=== PATIENT | female | born 1995 | race Caucasian/White ===

== ENCOUNTER 2017-12-28 13:40 | Emergency (ER) | payer MEDICAID ==
--- NOTE | 2017-12-28 14:09 | EDM.PDOC ---
ED HPI GENERAL MEDICAL PROBLEM - General Chief Complaint: Upper Extremity Injury/Pain Stated Complaint: rt arm Time Seen by Provider: 12/28/17 13:49 Source of Information: Reports: Patient, Family History Limitations: Reports: No Limitations - History of Present Illness INITIAL COMMENTS - FREE TEXT/NARRATIVE: 22 y.o.w.f with a prev right wrist injury, came to the ed after she was pushed forward during a game by accident. Pt l fall onto her right forearm wrist and noticed pain and deformity. Her friend brought her to the ed for evaluation. No other injuries. No N/V/D or any other acute medical issues. 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(s) R wrist Pain Score (Numeric/FACES): 10 - Related Data Allergies Allergy/AdvReac Type Severity Reaction Status Date / Time No Known Allergies Allergy Verified 12/28/17 13:56 Home Meds: Home Meds NK [No Known Home Meds] 01/27/16 [History] Past Medical History HEENT History: Reports: Other (See Below) Other HEENT History: chronic tonsillitis Musculoskeletal History: Reports: Fracture Other Musculoskeletal History: hx R wrist fx Psychiatric History: Reports: ADHD Endocrine/Metabolic History: Reports: Obesity/BMI 30+ - Past Surgical History HEENT Surgical History: Reports: Adenoidectomy, Tonsillectomy Social & Family History - Family History Family Medical History: Noncontributory - Tobacco Use Smoking Status *Q: Current Some Day Smoker Years of Tobacco use: 1 Packs/Tins Daily: 0.1 - Caffeine Use Caffeine Use: Reports: Soda - Recreational Drug Use Recreational Drug Use: No Review of Systems - Review of Systems Review Of Systems: See Below Constitutional: Reports: No Symptoms Eyes: Reports: No Symptoms Ears: Reports: No Symptoms Nose: Reports: No Symptoms Mouth/Throat: Reports: No Symptoms Respiratory: Reports: No Symptoms Cardiovascular: Reports: No Symptoms GI/Abdominal: Reports: No Symptoms Genitourinary: Reports: No Symptoms Musculoskeletal: Reports: Joint Pain (right wrist) Skin: Reports: No Symptoms Neurological: Reports: No Symptoms Psychiatric: Reports: No Symptoms ED EXAM, GENERAL - Physical Exam Exam: See Below Exam Limited By: No Limitations General Appearance: Alert, WD/WN, Mild Distress Eye Exam: Bilateral Eye: Normal Inspection Ears: Normal External Exam Ear Exam: Bilateral Ear: Auricle Normal Nose: Normal Inspection, Normal Mucosa, No Blood Throat/Mouth: Normal Inspection, Normal Lips, Normal Teeth, Normal Gums, Normal Oropharynx, Normal Voice, No Airway Compromise Head: Atraumatic, Normocephalic Neck: Normal Inspection, Supple, Non-Tender, Full Range of Motion Respiratory/Chest: No Respiratory Distress, Lungs Clear, Normal Breath Sounds, No Accessory Muscle Use, Chest Non-Tender Cardiovascular: Normal Peripheral Pulses, Regular Rate, Rhythm, No Edema, No Gallop, No JVD, No Murmur, No Rub Peripheral Pulses: 1+: Radial (L) GI/Abdominal: Normal Bowel Sounds, Soft, Non-Tender, No Organomegaly, No Distention, No Abnormal Bruit, No Mass, Pelvis Stable (Female) Exam: Deferred Rectal (Female) Exam: Deferred Back Exam: Normal Inspection Extremities: Joint Swelling (right wrist), Limited Range of Motion Neurological: Alert, Oriented, CN II-XII Intact, Normal Cognition, Normal Gait, No Motor/Sensory Deficits Psychiatric: Normal Affect, Normal Mood Skin Exam: Warm, Dry, Intact, Normal Color, No Rash Lymphatic: No Adenopathy Course - Vital Signs Text/Narrative:: 22 y.o.w.f with a prev right wrist injury, came to the ed after she was pushed forward during a game by accident. Pt l fall onto her right forearm wrist and noticed pain and deformity. Her friend brought her to the ed for evaluation. No other injuries. No N/V/D or any other acute medical issues. BP 146/94 RR 20 Temp 36.9 Pulse ox 100% pulse 91 PE: Obese 22 y.o.w.f with right wrist injury Impression: comminuted fx right distal radius, styled fx of ulna Tx: Motrin, Volar splint, ICE, elevation 3.10 pm Consultation: Dr. Ruiz, Ortho: Will perform Surgery on 12/29/2017Monday at noon. NPO after midnight today. Reexam: Improved Plan: D/C with instructions Last Recorded V/S: Last Vital Signs Temp 36.9 C 12/28/17 13:49 Pulse 95 12/28/17 13:49 Resp 18 12/28/17 15:15 BP 130/90 12/28/17 15:15 Pulse Ox 98 12/28/17 15:15 - Orders/Labs/Meds Meds: Medications Discontinued Medications Generic Name Dose Route Start Last Admin Trade Name Amanda PRN Reason Stop Dose Admin Ibuprofen 600 mg 12/28/17 14:48 12/28/17 14:58 Motrin PO 12/28/17 14:49 600 mg ONETIME ONE Administration Departure - Departure Time of Disposition: 15:24 Disposition: Home, Self-Care 01 Condition: Good Clinical Impression: Radius and ulna distal fracture Qualifiers: Encounter type: initial encounter Fracture type: closed Laterality: right Qualified Code(s): S52.501A - Unspecified fracture of the lower end of right radius, initial encounter for closed fracture - Discharge Information *PRESCRIPTION DRUG MONITORING PROGRAM REVIEWED*: Yes *COPY OF PRESCRIPTION DRUG MONITORING REPORT IN PATIENT ARTHUR: Yes Instructions: Ibuprofen tablets and capsules, Wrist Fracture Treated With Immobilization, [id number] Referrals: Yandel Ivory MD [Primary Care Provider] - Forms: ED Department Discharge Additional Instructions: Rest, ICE and elevation of R wrist. Motrin 600mg every 6 hours as needed for pain. NOthing to eat or drink after midnight tonight, please show up on the front office associate tomorrow at 10.30 am, surgery scheduled for noon tomorrow. Please come back if your symptoms get worse acutely.
[2017-12-28] MEDS ORDERED: Ibuprofen 600 MG Tab PO ONE (14:48)
--- NOTE | 2017-12-28 15:28 | CR ---
INDICATION: Fell, pain. RIGHT WRIST: Four views of the right wrist were obtained and revealed a severely comminuted fracture of the distal radial metaphysis with slight dorsal angulation of the radial joint surface. No other significant deformity was seen at that fracture site. A fracture through the base of the ulnar styloid is also noted with very minimal lateral offset of the distal fracture fragment. No other bone or joint abnormality was identified. IMPRESSION: Colles fracture with minimal deformity. Slight dorsal angulation of the radial joint surface is noted. MTDD
[2017-12-28 15:29] VITALS: BP 130/90
== END 2017-12-28 15:33 | disposition home or self-care (01) ==
LOC: FB.ED 13:40
DX: S52.531A Colles' fracture of right radius, initial encounter for closed fracture (principal); F17.210 Nicotine dependence, cigarettes, uncomplicated; E66.9 Obesity, unspecified; W03.XXXA Other fall on same level due to collision with another person, initial encounter; Y93.89 Activity, other specified
CPT/HCPCS: 29125; 73110-RT; 99283; A9270-GY

== ENCOUNTER 2017-12-29 10:19 | Day surgery (SDC) | payer MEDICAID ==
[2017-12-29] MEDS ORDERED: Lactated Ringers 1,000 ML IV SCH (10:30)
[2017-12-29] MEDS ORDERED: Sodium Chloride 0.9% 10 ML Syringe FLUSH PRN (10:30)
[2017-12-29] MEDS ORDERED: ceFAZolin 2 GM in Premix Bag 1 BAG IV ONE (12:00)
[2017-12-29] MEDS ORDERED: fentaNYL 100 MCG/2 ML SDV IV ONE (12:12)
[2017-12-29] MEDS ORDERED: Midazolam 1 MG/ML 2 ML SDV IV ONE (12:12)
[2017-12-29] MEDS ORDERED: Propofol 200 MG/20 ML SDV IV ONE (12:12)
[2017-12-29] MEDS ORDERED: Lidocaine 0.5% 50 ML SDV INJECT ONE (12:12)
[2017-12-29] MEDS ORDERED: Ketorolac 30 MG/ML SDV IVPUSH ONE (12:12)
[2017-12-29] MEDS ORDERED: HYDROmorphone 2 MG/ML SDV IV ONE (12:12)
[2017-12-29] MEDS ORDERED: Ondansetron 4 MG/2 ML SDV IVPUSH ONE (12:12)
--- NOTE | 2017-12-29 13:57 | OR ---
DATE OF OPERATION: 12/29/2017 SURGEON: Naun Ruiz DO PREOPERATIVE DIAGNOSIS: Right distal radius fracture, closed; also 4-part intra- articular. POSTOPERATIVE DIAGNOSIS: Right distal radius fracture, closed; also 4-part intra-articular. PROCEDURES PERFORMED: 1. Open reduction and internal fixation, right distal radius fracture, 4-part intra-articular. 2. Application of a short-arm splint. ANESTHESIA: Gabriel block plus conscious sedation. FLUID: Lactated Ringer solution. ESTIMATED BLOOD LOSS: 25 mL. COMPLICATIONS: None. SPECIMEN: None. DISCHARGE DISPOSITION: Stable to PACU. INDICATIONS FOR PROCEDURE: The patient was seen in the ER previously. She had fallen on her outstretched right hand. She was seen by the emergency department physician. Preoperative imaging confirmed the above-mentioned diagnosis. Risks and benefits of the procedure were explained to the patient and informed consent was obtained. DETAILS OF PROCEDURE: The patient was seen preoperatively by myself and the Anesthesia staff in the preoperative holding area, where the operative site was marked. She was brought to the operative suite by the Anesthesia staff, where Gabriel block was administered. The right upper extremity was then prepped and draped in a sterile manner. Time-out was called identifying the correct patient, the correct procedure, the correct site, and that antibiotics had been begun within the appropriate period of time. An incision was made over the flexor carpi radialis tendon and extended proximally approximately 10 cm. It was carried down to the tendon. Bleeding during the case was controlled with Bovie electrocautery. I then went through the ventral tendon sheath and then retracted the tendon radially to protect the radial artery with Weitlaner retractors. I then went through the dorsal portion of the FCR sheath and identified the pronator. I then elevated the pronator off its radial border, and I exposed the fracture site. I then reduced the fracture and confirmed this under fluoroscopy. I then applied a small axial lock Madeline plate and confirmed good position and then applied two K-wires to hold it in position. I then drilled my distal row and proximal row, and confirmed good placement with screws and then applied my proximal three shaft screws, which were a 16 and then two 14s x 2.7 mm. This reduced plate line nicely to the bone. I then took AP and lateral final radiographs, which confirmed good reduction and plate placement as well as screw placement, and that all the screws were extra- articular. I then copiously irrigated with saline and then closed the subcutaneous tissue with 2-0 Vicryl and then closed the skin with 3-0 nylon, followed by Betadine-soaked Adaptic, Webril, a short-arm splint, and Titi wrap. The patient had the tourniquet released and then was taken to the PACU in a stable condition. /[id number] BS/MODL
[2017-12-29] MEDS ORDERED: Acetaminophen/oxyCODONE 325-5 MG Tab PO PRN (14:10)
[2017-12-29] MEDS ORDERED: Ketorolac 60 MG/2 ML SDV IM ONE (14:15)
--- NOTE | 2017-12-29 14:44 | CR ---
INDICATION: ORIF wrist fracture. C-ARM IN OR, LESS THAN ONE HOUR: Total dose for fluoroscopy in OR was 0.0340 mGy. Two spot images were obtained in frontal and lateral projections utilizing the C -arm and revealed good position and alignment of the comminuted distal radial fracture fragments fixed in place by a plate with 8 screws. A complicating process was not identified. Ulnar styloid fracture fragments remain in good position and alignment. IMPRESSION: Satisfactory appearance post ORIF for right wrist fracture. [facility]
[2017-12-29] MEDS ORDERED: Ketorolac 30 MG/ML SDV IM ONE (14:53)
[2017-12-29 15:03] VITALS: BP 138/78
== END 2017-12-29 15:33 | disposition home or self-care (01) ==
LOC: FB.SDS 10:19
PROVIDERS: ATTEND Orthopaedic Surgery
DX: S52.571A Other intraarticular fracture of lower end of right radius, initial encounter for closed fracture (principal); E66.9 Obesity, unspecified; Z68.43 Body mass index [BMI] 50.0-59.9, adult; F17.210 Nicotine dependence, cigarettes, uncomplicated; W19.XXXA Unspecified fall, initial encounter
CPT/HCPCS: 25609; 36415; 76000; 81025; 85025; A9270; J0690; J1170; J1885; J2250; J2405; J2704; J3010; J7120